=== PATIENT | female | born 1960 | race American Indian/Alaskan Native ===

== ENCOUNTER 2016-08-21 10:59 | Emergency (ER) | payer MEDICAID ==
[2016-08-21 11:12] VITALS: BP 141/101
[2016-08-21] MEDS ORDERED: BOOSTRIX IM ONE (11:23)
--- NOTE | 2016-08-21 11:23 | Emergency Department Report ---
Entered by CLEMENTINE SHEIKH, acting as scribe for ANNIE HARGROVE NP. Chief Complaint: Pain General Stated Complaint: LEFT HAND pain Time Seen by Provider: 08/21/16 11:08 - HPI History of Present Illness: 55 y/o female presents c/o left hand pain after cat bite that occured last night. Additional Sx include nausea, hematemesis that started this morning and diaphoresis. Hx includes HIV positive. Pt's PCP is at [facility] and last viral check was last month. swelling to l hand. pt's cat. hiv she is diaphoretic wo fever vomiting bloody emesis this am thin and ill appearing ambulatory vital signs stable maew no focal or neuro deficit, - ROS Review of Systems: as noted - Exam Vital Signs: Vital Signs 08/21/16 11:07 Temperature 98.3 F Pulse Rate 109 H Respiratory 20 Rate Blood Pressure 141/101 O2 Sat by Pulse 98 Oximetry Physical Exam: as noted MSE screening note: Focused history and physical exam performed. Due to findings the following was ordered: ED Disposition for MSE Condition: Stable This documentation as recorded by the scribe,CLEMENTINE SHEIKH,accurately reflects the service I personally performed and the decisions made by me,ANNIE HARGROVE NP.
[2016-08-21 11:56] LABS: Basophils % (Auto) 0.8 % (0.0-1.8); Eosinophils % (Auto) 0.9 % (0.0-4.3); Hematocrit 44.9 % (30.3-42.9); Hemoglobin 14.4 gm/dl (10.1-14.3); Mean Corpuscular HGB Conc 32 % (30-34); Mean Corpuscular Hemoglobin 29 pg (28-32); Mean Corpuscular Volume 89 fl (79-97); Platelet Count 228 K/mm3 (140-440); Red Blood Count 5.02 M/mm3 (3.65-5.03); Red Cell Distribution Width 14.6 % (13.2-15.2); White Blood Count 10.3 K/mm3 (4.5-11.0)
[2016-08-21 12:05] LABS: INR 0.92 (0.87-1.13)
[2016-08-21 12:06] LABS: Partial Thromboplastin Time 30.5 Sec. (24.2-36.6)
[2016-08-21 12:15] LABS: Albumin 3.8 g/dL (3.9-5); Albumin/Globulin Ratio 0.7 %; BUN/Creatinine Ratio 11.25; Bilirubin,Total 0.4 mg/dL (0.1-1.2); Calcium 9.9 mg/dL (8.4-10.2); Chloride 96.9 mmol/L (98-107); Potassium 4.9 mmol/L (3.6-5.0)
[2016-08-21 12:56] LABS: Bacteria,Urine 1+ /HPF (Negative); Bilirubin,Urine NEG (Negative); Blood,Urine NEG (Negative); Ketones,Urine NEG (Negative); Leukocyte Esterase,Urine NEG (Negative); Nitrite,Urine NEG (Negative); Urobilinogen,Urine < 2.0 mg/dL (<2.0)
[2016-08-21 12:59] LABS: Protein,Urine >500 mg/dL (Negative)
[2016-08-24 10:14] LABS: HIV-1 RNA QN PCR <1.30 Log cps/mL (<1.30); HIV-1 RNA QN PCR <20 copies/mL (<20)
== END 2016-08-21 19:30 | disposition left against medical advice (07) ==
LOC: ED 10:59
DX: M79.642 Pain in left hand (principal); Z53.21 Procedure and treatment not carried out due to patient leaving prior to being seen by health care provider
CPT/HCPCS: 36415; 80053; 81001; 82024; 85025; 85610; 85730; 87536